=== PATIENT | male | born 1935 | race Caucasian/White ===

== ENCOUNTER → 2020-03-07 | Outpatient (CLI) | payer MEDICARE, SELFPAY | END | disposition home or self-care (01) | PROVIDERS: PCP Family Medicine; Referring Provider Nurse Practitioner Adult Health; Visit Provider Nurse Practitioner Adult Health | DX: N39.0 Urinary tract infection, site not specified (principal) | CPT/HCPCS: 87077; 87086; 87088; 87186 ==

== ENCOUNTER → 2023-09-19 | Outpatient (CLI) | payer MEDICARE, SELFPAY ==
--- NOTE | 2023-09-19 08:06 | MRI_ITS ---
STUDY: MRI LEFT ELBOW, WITHOUT AND WITH IV CONTRAST REASON FOR EXAM: Male, 88 years old. Elbow mass. TECHNIQUE: Standardized fat and water weighted pulse sequences were obtained in all 3 orthogonal planes. Following the intravenous administration of 15 cc Clariscan contrast, additional postcontrast imaging was obtained. COMPARISON: None. FINDINGS: Skin markers were placed along the anterior aspect of the elbow at the site of clinical concern. There are prominent serpiginous surface vessels in the anterior subcutaneous fat. There is tendinosis with thickening and increased intrasubstance signal of the distal biceps tendon insertion with peritendinous fluid (axial T2 series 6 images 1-6). There is no proximal biceps tendon retraction. Normal radio-capitellum articulation. Normal radial collateral ligamentous complex. Normal common extensor tendon. Normal ulnotrochlear articulation. Normal ulnar collateral ligamentous complex. Normal common flexor tendon. The cubital tunnel is normal, with a normal ulnar nerve. Normal biceps tendon and distal insertion. Normal lacertus fibrosis. Normal brachialis musculotendinous insertion. Normal triceps tendon and teno-osseous insertion. Normal olecranon process. The visualized distal humerus, proximal radius, and ulna are normal. The visualized muscles of the distal arm and proximal forearm are normal. There is mild subcutaneous soft tissue edema along the posterior and medial aspects of the elbow. Following IV contrast administration, there is no abnormal enhancing lesion. 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 No proximal biceps tendon retraction. Mild subcutaneous soft tissue edema along the posterior and medial aspects of the elbow. No abnormal enhancing lesion. Electronically Signed: Uday Ward MD at 15:06 EST ,
[2023-09-19 08:37] LABS: CREATININE FINGERSTICK 1.1 mg/dL (0.70-1.30); EGFR FINGERSTICK > 60.0000 mL/min (>60)
== END | disposition home or self-care (01) ==
PROVIDERS: PCP Student in an Organized Health Care Education/Training Program; Referring Provider Student in an Organized Health Care Education/Training Program; Visit Provider Student in an Organized Health Care Education/Training Program
DX: R22.30 Localized swelling, mass and lump, unspecified upper limb (principal)
CPT/HCPCS: 73223; A9575; A4216